=== PATIENT | male | born 1980 | race African-American/Black ===

== ENCOUNTER 2020-06-14 12:28 | Emergency (ER) | payer SELFPAY ==
[~2020-06-14] VITALS: Ht 180.3 cm; Wt 100.0 kg
[2020-06-14] MEDS ORDERED: LIDOCAINE HCL/PF 1% 10 MG/ML 5ML VIAL IJ ONE (13:45)
[2020-06-14] MEDS ORDERED: BACITRACIN ZINC OINT UDPKT TOP ONE (13:45)
[2020-06-14] MEDS ORDERED: IBUPROFEN 600MG TABLET PO ONE (13:45)
[2020-06-14] MEDS ORDERED: IBUP-2029 PO (14:49)
[2020-06-14] MEDS ORDERED: CEPH500T PO (14:49)
[2020-06-14] MEDS ORDERED: BO1 TP (14:49)
[2020-06-14 15:41] VITALS: BP 128/89
== END 2020-06-14 15:43 | disposition home or self-care (01) ==
LOC: ER 12:28
DX: L60.0 Ingrowing nail (principal); R03.0 Elevated blood-pressure reading, without diagnosis of hypertension
CPT/HCPCS: 99283; A4217; J3490; Z7610